=== PATIENT | female | born 1960 | race Caucasian/White ===

== ENCOUNTER → 2018-01-31 | Outpatient (CLI) | payer BC ==
[~2018-01-31] VITALS: Ht 165.1 cm; Wt 62.1 kg
[~2018-01-31] MED LIST: BENTYL10 MG PO; CALCIUM + D SO1 EACH PO; DOVONEX 0.005%60 GM PO; FLAXSEED340 GM PO; LO-DOSE ASPIRIN81 M1 PO; PROBIOTIC1 EAC3 PO; RED YEAST RICE600 MG PO; TOPICORT100 ML TP; WOMEN'S 50 PLU1 EACH PO
== END | disposition home or self-care (01) ==
LOC: AMB 08:56
PROC: 0DJD8ZZ Inspection of Lower Intestinal Tract, Via Natural or Artificial Opening Endoscopic (ICD-10-PCS; principal; 2018-01-31)
DX: Z12.11 Encounter for screening for malignant neoplasm of colon (principal); K64.8 Other hemorrhoids; K57.30 Diverticulosis of large intestine without perforation or abscess without bleeding; R10.9 Unspecified abdominal pain; R11.0 Nausea; K62.5 Hemorrhage of anus and rectum; K62.89 Other specified diseases of anus and rectum; Z80.0 Family history of malignant neoplasm of digestive organs; Z88.2 Allergy status to sulfonamides; Z88.0 Allergy status to penicillin
CPT/HCPCS: J3010